=== PATIENT | female | born 1990 | race Two or more races ===

== ENCOUNTER 2017-04-19 12:40 | Emergency (ER) | payer BC ==
[2017-04-19 13:03] VITALS: BP 122/79
--- NOTE | 2017-04-19 13:12 | EDM.PDOC ---
[id number] Complaint: INJURED LT ANKLE Time Seen by Provider: 04/19/17 13:07 Source of Information: Reports: Patient History Limitations: Reports: No Limitations - History of Present Illness INITIAL COMMENTS - FREE TEXT/NARRATIVE: 26-year-old female of [place] ancestry presents to the ED with an acute injury to her left ankle. She states about an hour ago while she was in the shower she slipped and suffered an inversion strain to her left ankle. She caught herself and did therefore did not fall to the bottom of the shower. She reports no other injuries. No previous surgery to the left ankle. She can weight -bear by walking on her heel. 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: Reports: Other (see below) (None.) Other Treatments TEACHER RESOURCE: motrin 600mg at 1230 Left Ankle Pain Score (Numeric/FACES): 7 - Related Data Allergies Allergy/AdvReac Type Severity Reaction Status Date / Time No Known Allergies Allergy Verified 04/19/17 12:56 Home Meds: Home Meds Ibuprofen 600 mg PO QID PRN #40 tablet 04/17/15 [Rx] Levothyroxine 50 mcg PO DAILY 04/17/15 [History] Past Medical History - Past Health History Medical/Surgical History: Denies Medical/Surgical History Endocrine/Metabolic History: Reports: Hypothyroidism Social & Family History - Tobacco Use Smoking Status *Q: Never Smoker Second Hand Smoke Exposure: No - Recreational Drug Use Recreational Drug Use: No - Living Situation & Occupation Living situation: Reports: Occupation: Employed Review of Systems - Review of Systems Review Of Systems: See Below Constitutional: Reports: No Symptoms Eyes: Reports: No Symptoms Ears: Reports: No Symptoms Nose: Reports: No Symptoms Mouth/Throat: Reports: No Symptoms Respiratory: Reports: No Symptoms Cardiovascular: Reports: No Symptoms GI/Abdominal: Reports: No Symptoms Genitourinary: Reports: No Symptoms Musculoskeletal: Reports: No Symptoms Skin: Reports: No Symptoms Neurological: Reports: No Symptoms Psychiatric: Reports: No Symptoms ED EXAM, GENERAL - Physical Exam Exam: See Below Exam Limited By: No Limitations General Appearance: Alert, WD/WN, Mild Distress Peripheral Pulses: 2+: Posterior Tibial (L), Posterior Tibial (R), Dorsalis Pedis (L), Dorsalis Pedis (R) Extremities: Other (Examination was limited to the left lower extremity. No pain on from compression of the proximal fibula. No pain in the ankle on from compression of the mid tib-fib. Medial ankle ligaments are intact. No pain on compression of the metatarsals or the fifth metatarsal head in the foot. There is swelling over the distal fibular malleolus.) Neurological: Alert, Oriented, CN II-XII Intact, Normal Cognition Psychiatric: Normal Affect, Normal Mood Skin Exam: Warm, Dry, Intact, Normal Color, No Rash Course - Vital Signs Last Recorded V/S: Last Vital Signs Temp 36.6 C 04/19/17 12:57 Pulse 86 04/19/17 12:57 Resp 16 04/19/17 12:57 BP 122/79 04/19/17 12:57 Pulse Ox 100 04/19/17 12:57 - Radiology Interpretation Free Text/Narrative:: 26-year-old female presents to the ED with an inversion injury to her left ankle that occurred about an hour ago while she was in the shower. Marked swelling of the lateral aspect of her ankle appreciated and she's not able to weight-bear other than light weightbearing on her heel. No other injuries occurred. Plan will be to x-ray the left ankle - Re-Assessments/Exams Free Text/Narrative Re-Assessment/Exam: 04/19/17 14:28 to the left ankle is within normal limits revealing no bony injuries. Treatment will be conservative with Avinash wrap elevation ice and nonweightbearing with crutches. Avinash wrap applied in the ED and should be on during the day and off at night. Motrin 600 mg every 6 hours when necessary for pain relief. Follow-up if not improved completely back to normal in 14 days time Departure - Departure Time of Disposition: 14:28 Disposition: Home, Self-Care 01 Condition: Fair Clinical Impression: Inversion sprain of left ankle Qualifiers: Encounter type: initial encounter Qualified Code(s): S93.402A - Sprain of unspecified ligament of left ankle, initial encounter - Discharge Information Instructions: Ankle Sprain, [id number] Referrals: Raymond Salgado MD [Primary Care Provider] - Forms: ED Department Discharge, ED Return to Work/School Form Additional Instructions: Evaluation in the emergency department today in regards to acute injury to her left ankle while in the shower this morning. An inversion injury has occurred with strain of the lateral ligaments of the ankle. X-ray does not reveal any bony injuries. He is therefore elevate the foot as much as possible today and tomorrow. Ice pack to the area for one half hour out of every 4 hours for 2 days and after that may apply heat to the area. Nonweightbearing with crutches for the next 3-5 days until you're able to weight-bear with minimal amount of pain. Avinash wrap on during the day and off at night. Expect full recovery over the next 14 days. If not completely back to normal in 14 days time such as able to walk up a flight of stairs with no pain and you should be reviewed. Suggest Motrin 600 mg every 6 hours or Aleve 2 tablets every 8 hours to reduce pain and inflammation. Just off work definitely today and tentatively return to alternative work duties
--- NOTE | 2017-04-19 17:29 | CR ---
Left ankle: Four views of the left ankle were obtained. Comparison: No previous study. Small plantar spur is seen. Ankle mortise is symmetric. No fracture, dislocation or other bony abnormality is seen. Impression: 1. Incidental plantar spur. 2. Left ankle study is otherwise unremarkable. Diagnostic code #2
== END 2017-04-19 15:12 | disposition home or self-care (01) ==
LOC: JD.ED 12:40
DX: S93.402A Sprain of unspecified ligament of left ankle, initial encounter (principal); E03.9 Hypothyroidism, unspecified; Z79.899 Other long term (current) drug therapy; X50.9XXA Other and unspecified overexertion or strenuous movements or postures, initial encounter
CPT/HCPCS: 73610-26-LT; 73610-LT; 99282; 99283

== ENCOUNTER 2020-02-24 03:49 | Emergency (ER) | payer BC ==
--- NOTE | 2020-02-24 05:12 | EDM.PDOC ---
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 pt was fine other than having scant bleeding since the procedure. pt was at work and started having heavy bleeding and soaked 5 pads in an hour. pt claimed she had on & off discomfort. [ End ] There is been no fever nausea vomiting or any other symptom of acute medical illness. He has not taken any medication or tried any other measure except use of pads to moderate this condition. 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: Neurological History: Reports: Migraines Psychiatric History: Reports: None Endocrine/Metabolic History: Reports: Hypothyroidism Hematologic History: Reports: None Oncologic (Cancer) History: Reports: None - Infectious Disease History Infectious Disease History: Reports: None - Past Surgical History Female Surgical History: Reports: Section Social & Family History - Family History Family Medical History: Noncontributory - Tobacco Use Smoking Status *Q: Never Smoker - Caffeine Use Caffeine Use: Reports: Coffee - Recreational Drug Use Recreational Drug Use: No - Living Situation & Occupation Living situation: Reports: Occupation: Employed ED ROS GENERAL - Review of Systems Review Of Systems: Comprehensive ROS is negative, except as noted in HPI. ED EXAM, RENAL/ - Physical Exam Exam: See Below Exam Limited By: No Limitations General Appearance: Alert, WD/WN, No Apparent Distress Eye Exam: Bilateral Eye: EOMI, PERRL Ears: Normal External Exam Nose: Normal Inspection Throat/Mouth: Normal Inspection Head: Atraumatic, Normocephalic Neck: Normal Inspection, Supple Respiratory/Chest: No Respiratory Distress, Lungs Clear Cardiovascular: Regular Rate, Rhythm GI/Abdominal: Soft, Non-Tender Back Exam: Normal Inspection Extremities: Normal Inspection, Non-Tender Neurological: Alert, Oriented, Normal Cognition, No Motor/Sensory Deficits Psychiatric: Normal Affect Skin Exam: Warm, Dry Course - Vital Signs Last Recorded V/S: Last Vital Signs Temp 37.3 C 02/24/20 04:07 Pulse 95 02/24/20 04:07 Resp 20 02/24/20 04:07 BP 157/90 H 02/24/20 04:07 Pulse Ox 100 02/24/20 04:07 - Orders/Labs/Meds Orders: Active Orders 24 hr Category Date Time Status Pelvic Exam, Set Up [RC] ASDIRECTED Care 02/24/20 06:10 Active Labs: Laboratory Tests 02/24/20 02/24/20 02/24/20 Range/Units 04:40 04:40 04:40 WBC 6.63 (3.98-10.04) K/mm3 RBC 4.66 (3.98-5.22) M/mm3 Hgb 13.9 (11.2-15.7) gm/dl Hct 41.0 (34.1-44.9) % MCV 88.0 (79.4-94.8) fl MCH 29.8 (25.6-32.2) pg MCHC 33.9 (32.2-35.5) g/dl RDW Std Deviation 43.7 (36.4-46.3) fL Plt Count 230 (182-369) K/mm3 MPV 12.1 (9.4-12.3) fl Neutrophils % (Manual) 58 (40-60) % Band Neutrophils % 0 (0-10) % Lymphocytes % (Manual) 36 (20-40) % Atypical Lymphs % 0 % Monocytes % (Manual) 5 (2-10) % Eosinophils % (Manual) 1 (0.7-5.8) % Basophils % (Manual) 0 L (0.1-1.2) Platelet Estimate Adequate RBC Morph Comment Normal PT 10.3 (9.7-12.0) SECONDS INR 0.94 APTT 30 (22-31) SECONDS Sodium 140 (136-145) mEq/L Potassium 3.5 (3.5-5.1) mEq/L Chloride 105 (98-107) mEq/L Carbon Dioxide 26 (21-32) mEq/L Anion Gap 12.5 (5-15) BUN 17 (7-18) mg/dL Creatinine 0.7 (0.55-1.02) mg/dL Est Cr Clr Drug Dosing 84.41 mL/min Estimated GFR (MDRD) > 60 (>60) mL/min BUN/Creatinine Ratio 24.3 H (14-18) Glucose 101 (74-106) mg/dL Calcium 8.7 (8.5-10.1) mg/dL Total Bilirubin 1.2 H (0.2-1.0) mg/dL AST 42 H (15-37) U/L ALT 46 (14-59) U/L Alkaline Phosphatase 76 (46-116) U/L Total Protein 7.7 (6.4-8.2) g/dl Albumin 3.7 (3.4-5.0) g/dl Globulin 4.0 gm/dL Albumin/Globulin Ratio 0.9 L (1-2) - Re-Assessments/Exams Free Text/Narrative Re-Assessment/Exam: 02/24/20 06:18 Speculum exam the LEEP site appears fairly benign although there is a collection of soft clot apparently adherent to it unclear whether it was residual from the LEEP which may be unlikely but it could not be readily determined whether it was from the procedure or coming from above. Discussed with Dr. Baker who asked that we hold the patient in the emergency department and she will be by within an hour and a half or so to evaluate her. Departure - Departure Disposition: Home, Self-Care 01 Clinical Impression: Vaginal bleeding, History of loop electrical excision procedure (LEEP) - Discharge Information Referrals: Raymond Salgado MD [Primary Care Provider] - Forms: ED Department Discharge Additional Instructions: Return to the emergency room with any questions problems or worsening symptoms. Follow-up with Dr. Elizalde is needed. Sepsis Event Note (ED) - Evaluation Sepsis Screening Result: No Definite Risk - Focused Exam Vital Signs: Vital Signs Temp Pulse Resp BP Pulse Ox 02/24/20 04:07 37.3 C 95 20 157/90 H 100 <Freddy Brito - Last Filed: 02/24/20 07:27> Course - Re-Assessments/Exams Free Text/Narrative Re-Assessment/Exam: 02/24/20 07:26 The patient was evaluated by Dr. Elizalde. Dr. Elizalde feels patient can go home and follow-up with her only as needed. I did discuss this with the patient and she would like to go home. We will discharge at this time Departure - Departure Time of Disposition: 07:26
[2020-02-24 07:42] VITALS: BP 126/60; PULSE 98
--- NOTE | 2020-02-24 08:13 | PCM.CONS ---
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 Procedure uncomplicated. Was doing well until around 0230 this AM. At that time was at work and noted acute onset of very heavy bleeding. Notes soaking through about 5 pads in a few hours. Presented to the ER around 0430 or so this AM. Bleeding has slowed, but still present. No dizziness, lightheadedness, chest pain, or SOB. 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: : 1 Para: 1 Neurological History: Reports: Migraines Endocrine/Metabolic History: Reports: Hypothyroidism - Past Surgical History Female Surgical History: Reports: Section, LEEP Musculoskeletal Surgical History: Reports: Carpal Tunnel Social & Family History - Family History Family Medical History: Noncontributory - Tobacco Use Smoking Status *Q: Never Smoker - Caffeine Use Caffeine Use: Reports: Coffee - Alcohol Use Alcohol Use History: No - Recreational Drug Use Recreational Drug Use: No - Living Situation & Occupation Living situation: Reports: Occupation: Employed H&P Review of Systems - Review of Systems: Review Of Systems: See Below General: Reports: No Symptoms Pulmonary: Reports: No Symptoms Cardiovascular: Reports: No Symptoms Gastrointestinal: Reports: No Symptoms Genitourinary: Reports: Other (reported heavy bleeding) Musculoskeletal: Reports: No Symptoms Psychiatric: Reports: No Symptoms Neurological: Reports: No Symptoms Exam - Exam Exam: See Below - Vital Signs Vital Signs: Last Vital Signs Temp 37.1 C 02/24/20 07:35 Pulse 98 02/24/20 07:35 Resp 16 02/24/20 07:35 BP 126/60 02/24/20 07:35 Pulse Ox 99 02/24/20 07:35 Weight: 115.212 kg - Exam General: Alert, Oriented, Cooperative Lungs: Clear to Auscultation, Normal Respiratory Effort Cardiovascular: Regular Rate, Regular Rhythm GI/Abdominal Exam: Soft, Non-Tender (Female) Exam: Normal External Exam, Other (speculum exam shows healing cervical bed. No active bleeding. Slight abraided look to cervix. No gross abnormalities) - Patient Data Lab Results Last 24 hrs: Laboratory Results - last 24 hr 02/24/20 02/24/20 02/24/20 Range/Units 04:40 04:40 04:40 WBC 6.63 (3.98-10.04) K/mm3 RBC 4.66 (3.98-5.22) M/mm3 Hgb 13.9 (11.2-15.7) gm/dl Hct 41.0 (34.1-44.9) % MCV 88.0 (79.4-94.8) fl MCH 29.8 (25.6-32.2) pg MCHC 33.9 (32.2-35.5) g/dl RDW Std Deviation 43.7 (36.4-46.3) fL Plt Count 230 (182-369) K/mm3 MPV 12.1 (9.4-12.3) fl Neutrophils % (Manual) 58 (40-60) % Band Neutrophils % 0 (0-10) % Lymphocytes % (Manual) 36 (20-40) % Atypical Lymphs % 0 % Monocytes % (Manual) 5 (2-10) % Eosinophils % (Manual) 1 (0.7-5.8) % Basophils % (Manual) 0 L (0.1-1.2) Platelet Estimate Adequate RBC Morph Comment Normal PT 10.3 (9.7-12.0) SECONDS INR 0.94 APTT 30 (22-31) SECONDS Sodium 140 (136-145) mEq/L Potassium 3.5 (3.5-5.1) mEq/L Chloride 105 (98-107) mEq/L Carbon Dioxide 26 (21-32) mEq/L Anion Gap 12.5 (5-15) BUN 17 (7-18) mg/dL Creatinine 0.7 (0.55-1.02) mg/dL Est Cr Clr Drug Dosing 84.41 mL/min Estimated GFR (MDRD) > 60 (>60) mL/min BUN/Creatinine Ratio 24.3 H (14-18) Glucose 101 (74-106) mg/dL Calcium 8.7 (8.5-10.1) mg/dL Total Bilirubin 1.2 H (0.2-1.0) mg/dL AST 42 H (15-37) U/L ALT 46 (14-59) U/L Alkaline Phosphatase 76 (46-116) U/L Total Protein 7.7 (6.4-8.2) g/dl Albumin 3.7 (3.4-5.0) g/dl Globulin 4.0 gm/dL Albumin/Globulin Ratio 0.9 L (1-2) Result Diagrams: 02/24/20 04:40 02/24/20 04:40 Sepsis Event Note - Evaluation Sepsis Screening Result: No Definite Risk - Focused Exam Vital Signs: Vital Signs Temp Pulse Resp BP Pulse Ox 02/24/20 07:35 37.1 C 98 16 126/60 99 02/24/20 04:07 37.3 C 95 20 157/90 H 100 Date Exam was Performed: 02/26/20 Time Exam was Performed: 20:21 Consult PN Assessment/Plan Procedures: Procedures EMERGENCY DEPT VISIT (04/19/17) EMERGENCY DEPT VISIT (11/24/15) EMERGENCY DEPT VISIT (04/17/15) RPR F/E/E/N/L/M 2.5 CM/< (11/24/15) X-RAY EXAM OF ANKLE (04/19/17) Problem List Initiated/Reviewed/Updated: Yes Plan: Labs done and normal by ER. Exam by myself without concern. Possible had vessel begin bleeding, but has already ceased as has been about 4.5 hours since onset of bleeding. Reviewed options of management and patient feels comfortable going home and monitoring. She will contact us if further concerns
== END 2020-02-24 07:35 | disposition home or self-care (01) ==
LOC: JD.ED 03:49
DX: N93.9 Abnormal uterine and vaginal bleeding, unspecified (principal); E03.9 Hypothyroidism, unspecified; Z79.899 Other long term (current) drug therapy
CPT/HCPCS: 36415; 80053; 85007; 85027; 85610; 85730; 99282; 99284